=== PATIENT | male | born 1960 | race Caucasian/White ===

== ENCOUNTER 2019-05-21 15:10 | Emergency (ER) | payer MEDICARE ==
[~2019-05-21] VITALS: Ht 167.6 cm; Wt 67.0 kg
[2019-05-21] MEDS ORDERED: SODIUM CHLORIDE 0.9% 1,000 ML IV ONE ×2 (16:19)
[2019-05-21] MEDS ORDERED: INSULIN REGULAR (HUMULIN R) UD 100 UNITS/ML SYR SUBCUT ONE (16:30)
[2019-05-21 16:39] LABS: HEMATOCRIT. 35.8 % (42.0-52.0); HEMOGLOBIN. 11.8 g/dL (14.0-18.0); MEAN CORPUSCULAR HEMOGLOBIN 27.4 pg (28.0-32.0); MEAN CORPUSCULAR VOLUME 83.2 fL (80.0-94.0); MEAN PLATELET VOLUME 9.9 fl (7.4-10.4); PLATELET 193 x1000/uL (130-400); RED CELL DISTRIBUTION WIDTH 14.9 % (11.6-14.6)
[2019-05-21 16:42] LABS: CHLORIDE 92 mEq/L (98-107)
[2019-05-21 16:49] LABS: BETA HYDROXYBUTYRATE 0.3 mMol/L (0.0-0.3)
[2019-05-21] MEDS ORDERED: INSULIN REGULAR (HUMULIN R) 300UNITS/3ML SUBCUT NR (17:00)
[2019-05-21 17:04] LABS: PLATELET ESTIMATE NORMAL
[2019-05-21 18:07] LABS: CLARITY URINE CLOUDY (CLEAR); COLOR URINE YELLOW (YELLOW); KETONES URINE NEGATIVE (NEGATIVE); LEUKOCYTE ESTERASE URINE 1+ (NEGATIVE); NITRITE URINE POSITIVE (NEGATIVE); OCCULT BLOOD URINE TRACE (NEGATIVE); PROTEIN URINE NEGATIVE (NEGATIVE); UROBILINOGEN URINE 0.2 E.U./dL (0.2-1.0)
[2019-05-21] MEDS ORDERED: CEFTRIAXONE 1 G PREMIX 50 ML IV ONE (18:30)
[2019-05-21 19:33] VITALS: BP 135/83
== END 2019-05-21 19:37 | disposition home or self-care (01) ==
LOC: ER 15:10
DX: E11.65 Type 2 diabetes mellitus with hyperglycemia (principal); N39.0 Urinary tract infection, site not specified; I10 Essential (primary) hypertension; Z79.4 Long term (current) use of insulin; Z79.84 Long term (current) use of oral hypoglycemic drugs
CPT/HCPCS: 36415; 71045; 80053; 81003; 82010; 82962; 85025; 93005; 96361; 96365; 96372; 99284; J0696; J1815; J7030